=== PATIENT | female | born 1980 | race Hispanic/Latino ===

== ENCOUNTER 2020-09-09 07:58 | Emergency (ER) | payer SELFPAY ==
[2020-09-09] MEDS ORDERED: Ketorolac Tromethamine 30 MG/ML VIAL ONE (08:10)
== END 2020-09-09 09:25 ==
LOC: ERS 07:58 → EEVIPCON 07:58 → ERS 09:25
DX: S93.401A Sprain of unspecified ligament of right ankle, initial encounter (principal); M25.561 Pain in right knee; Y04.2XXA Assault by strike against or bumped into by another person, initial encounter
CPT/HCPCS: 96372; J1885